=== PATIENT | female | born 1960 | race Two or more races ===

== ENCOUNTER 2023-03-05 14:17 | Emergency (ER) | payer BC ==
[~2023-03-05] VITALS: Ht 162.6 cm; Wt 95.0 kg
[2023-03-05 14:48] VITALS: BP 167/78; PULSE 85; RESP 18; O2SAT 95
[2023-03-05] MEDS ORDERED: ACETAMINOPHEN 500 MG TAB PO ONE (15:00)
[2023-03-05 16:04] VITALS: TEMP 98.3
[2023-03-05] MEDS ORDERED: METH-1182 PO (16:05)
[2023-03-05] MEDS ORDERED: ACET-1080 PO (16:05)
== END 2023-03-05 16:06 | disposition home or self-care (01) ==
LOC: ER 14:17
DX: S63.591A Other specified sprain of right wrist, initial encounter (principal); S39.012A Strain of muscle, fascia and tendon of lower back, initial encounter; S29.011A Strain of muscle and tendon of front wall of thorax, initial encounter; K21.9 Gastro-esophageal reflux disease without esophagitis; Z98.890 Other specified postprocedural states; Z79.899 Other long term (current) drug therapy; W01.0XXA Fall on same level from slipping, tripping and stumbling without subsequent striking against object, initial encounter; Y93.89 Activity, other specified; Y92.512 Supermarket, store or market as the place of occurrence of the external cause; Y99.8 Other external cause status
CPT/HCPCS: 71101; 72100; 73110